=== PATIENT | female | born 1955 | race Caucasian/White ===

== ENCOUNTER 2025-05-23 10:27 | Outpatient (CLI) | payer MEDICARE ==
[~2025-05-23 10:27] MED LIST: Iopamidol 300 61% 100 ML VIAL FS ONE
[2025-05-23 11:44] LABS: Estimated GFR - POC 98.0
== END 2025-05-23 10:28 | disposition home or self-care (01) ==
LOC: CSHCT 10:27
PROVIDERS: ATTEND Family Medicine
DX: Z12.2 Encounter for screening for malignant neoplasm of respiratory organs (principal); F17.210 Nicotine dependence, cigarettes, uncomplicated; E27.9 Disorder of adrenal gland, unspecified; K76.9 Liver disease, unspecified; R91.1 Solitary pulmonary nodule; Z12.31 Encounter for screening mammogram for malignant neoplasm of breast
CPT/HCPCS: 71271; 74170; 77063; 77067; 82565; Q9967

== ENCOUNTER 2025-05-31 17:47 | Emergency (ER) | payer MEDICARE ==
[2025-05-31 19:00] LABS: Hematocrit 46.0 % (34.9-44.5); Hemoglobin 14.6 g/dL (12.0-15.5); Mean Corpuscular Hemoglobin 28.6 pg (27.0-33.0); Mean Corpuscular Volume 90.2 fL (81.6-98.3); Platelet Count 265 10x3/uL (150-450); Red Blood Cell (RBC) Count 5.10 10x6/uL (3.90-5.03); White Blood Cell (WBC) Count 8.23 10x3/uL (3.5-10.5)
[2025-05-31 19:06] LABS: ALT (SGPT) Less than 7 U/L (Less than 34); AST (SGOT) 11 U/L (11-34); Albumin 3.7 g/dL (3.1-4.5); Alkaline Phosphatase 88 U/L (40-110); Anion Gap 9 mmol/L (10-20); BUN (Urea Nitrogen) 10 mg/dL (9.8-20.1); Bilirubin, Total 0.3 mg/dL (0.3-1.2); Calc. Creatinine Clearance 0 mL/min (70-130); Calcium 9.2 mg/dL (7.8-10.44); Carbon Dioxide 28 mmol/L (23-31); Chloride 108 mmol/L (98-107); Globulin 3.4 g/dL (2.4-3.5); Glucose 95 mg/dL (80-115); Lipase 43 U/L (8-78); Potassium 4.0 mmol/L (3.5-5.1); Sodium 141 mmol/L (136-145)
[2025-05-31 19:38] LABS: MDiff Complete? YES; Platelet Adequacy Comment Appears Adequate; RBC Morphology Within Normal Limits
[2025-05-31 20:19] LABS: Glucose, Urine (Dipstick) Normal (Negative); Leukocyte Negative (Negative); Protein, Urine (Dipstick) 15 mg/dl (Neg-Trace); Specific Gravity, Urine 1.015 (1.005-1.030)
[2025-05-31] MEDS ORDERED: Sulfameth/Trimethoprim DS 800-160mg TAB ONE (20:58)
[2025-05-31] MEDS ORDERED: metroNIDAZOLE 500 MG TAB ONE (20:59)
[2025-05-31 21:00] LABS: CAUTI Indications for Culture Pelvic or flank pain; RBC/HPF 0-3 HPF (0-3); WBC/HPF 0-3 HPF (0-3)
[2025-05-31 21:01] LABS: Mucous/LPF 1+ LPF (<2+)
[2025-05-31 21:02] LABS: Bacteria/HPF 1+ HPF (None Seen); Urine Culture Reflex No No
== END 2025-05-31 21:21 | disposition home or self-care (01) ==
LOC: CSHERS 17:47
DX: K57.32 Diverticulitis of large intestine without perforation or abscess without bleeding (principal); I10 Essential (primary) hypertension; F17.210 Nicotine dependence, cigarettes, uncomplicated; Z75.3 Unavailability and inaccessibility of health-care facilities; Z79.899 Other long term (current) drug therapy; Z79.890 Hormone replacement therapy
CPT/HCPCS: 74177; 80053; 81001; 83690; 85025; 96372; Q9967